=== PATIENT | female | born 1940 | race Caucasian/White ===

== ENCOUNTER 2017-08-13 14:17 | Emergency (ER) | payer OTHER ==
[~2017-08-13] VITALS: Ht 162.6 cm; Wt 63.5 kg
[~2017-08-13 14:17] MED LIST: ALENDRONATE SOD70 M2 PO; AMLODIPINE BESYL5 M1 PO; AUGMENTIN 875-1 EACH PO; HYDROCHLOROTHIA25 M1 PO; LATANOPROST2.5 ML OU; LEVOTHYROXINE50 MCG PO; PRAVASTATIN SOD20 M2 PO
--- NOTE | 2017-08-13 14:26 | ED GI/GU/ABDOMINAL COMPLAINT ---
History of Present Illness General Chief Complaint: General Adult Stated Complaint: SIB BY PCP FOR Source: patient, family Exam Limitations: no limitations Vital Signs & Intake/Output Vital Signs & Intake/Output Vital Signs Date Time Temp Pulse Resp B/P B/P Pulse O2 O2 Flow FiO2 Mean Ox Delivery Rate 08/13 1755 97.8 100 16 132/81 98 Room Air 08/13 1447 98 Room Air 08/13 1423 98.1 101 20 148/92 96 Room Air Allergies Coded Allergies: No Known Allergies (05/13/17) Triage Note: SEEN HERE LAST NIGHT FOR NAUSEA. TODAY CONTINUES WITH NAUSEA, CHILLS, POOR APPETITE AND LOW GRADE FEVER. PT DENIES ABDOMINAL PAIN. SIB DR LITTLEJOHN FOR CT SCAN Triage Nurses Notes Reviewed? yes ? N Is pt currently ? No Onset: Gradual Duration: day(s): Timing: recent history Quality/Severity: moderate HPI: 76yo female presents to ED sent in by PCP for CT scan. The patient was seen and evaluated here yesterday complaining of nausea and low appetite. Patient reports nausea for the past few days and poor appetite for several weeks. Patient states that she has been having less frequent bowel movements and small bowel movements which she attributes to eating less. Patient's primary care doctor called her this morning to tell her to come back to the emergency department for CT scan. Patient has no abdominal pain, diarrhea, vomiting, fevers, chills, dyspnea, cough. (Alexandra BORRERO,[place] Chapin) Reconcile Medications Alendronate Sodium 70 MG TABLET 1 TAB PO QMON OSTEOPOROSIS (Reported) in the morning, at least 30 minutes before the first food, beverage, or medication of the day Alprazolam 0.25 MG TABLET 1 TAB PO BIDP PRN ANXIETY (Reported) Amlodipine Besylate 5 MG TABLET 1.5 TAB PO DAILY BP (Reported) Docusate Sodium (Colace) 100 MG CAPSULE 1 CAP PO DAILY CONSTIPATION (Reported ) Escitalopram Oxalate 5 MG TABLET 1 TAB PO DAILY MENTAL HEALTH (Reported) Hydrochlorothiazide 25 MG TABLET 1 TAB PO DAILY DIURETIC (Reported) Latanoprost 0.005 % DROPS 1 GTT OU QPM BOTH EYES (Reported) Levothyroxine Sodium 50 MCG TABLET 1 TAB PO DAILY THYROID (Reported) Ondansetron (Zofran Odt) 4 MG TAB.RAPDIS 1 TAB SL TID nausea Pravastatin Sodium 20 MG TABLET 1 TAB PO DAILY CHOLESTEROL (Reported) Promethazine HCl 25 MG TABLET 1 TAB PO Q6P PRN nausea Tylenol With Codeine (Tylenol With Codeine #3 Tablet) 300 MG-30 MG TABLET 1-2 TAB PO BIDP PRN pain (Carlito JOSEPH,Kendall Pompa) Past History Travel History Traveled to [place] past 21 day No Medical History Any Pertinent Medical History? see below for history Neurological: RT ARM RESTING TREMOR Cardiovascular: hypertension, hyperlipidemia Endocrine: hypothyroidism History of MRSA: No History of VRE: No History of CDIFF: No Surgical History Surgical History: none Psychosocial History What is your primary language Vietnamese Tobacco Use: Quit >30 days ago ETOH Use: denies use Illicit Drug Use: denies illicit drug use Family History Hx Contributory? No ([place] Lopez) Review of Systems Review of Systems Constitutional: Reports: see HPI. EENTM: Reports: no symptoms. Respiratory: Reports: no symptoms. Cardiovascular: Reports: no symptoms. GI: Reports: see HPI. Genitourinary: Reports: no symptoms. Musculoskeletal: Reports: no symptoms. Skin: Reports: no symptoms. Neurological/Psychological: Reports: no symptoms. Hematologic/Endocrine: Reports: no symptoms. Immunologic/Allergic: Reports: no symptoms. All Other Systems: Reviewed and Negative ([place] Lopez) Physical Exam Physical Exam General Appearance: well developed/nourished, no apparent distress, alert, awake Head: atraumatic, normal appearance Eyes: Bilateral: normal appearance. Ears, Nose, Throat, Mouth: hearing grossly normal Neck: normal inspection, supple, full range of motion Respiratory: normal breath sounds, no respiratory distress, lungs clear Cardiovascular: regular rate/rhythm Gastrointestinal: normal bowel sounds, soft, non-tender, no organomegaly Back: normal inspection, normal range of motion Extremities: normal range of motion Neurologic/Psych: awake, alert, oriented x 3, resting upper extremity tremor bilaterally Skin: intact, normal color, warm/dry Core Measures ACS in differential dx? No Sepsis Present: No Sepsis Focused Exam Completed? No ([place]ia Lopez) Progress Differential Diagnosis: appendicitis, bowel obstruction, colon cancer, cholecystitis, diverticulitis, gastritis, hepatitis, hernia, inflamm bowel dis, SBO Plan of Care: Orders Procedure Date/time Status Enema 08/13 1641 Active Add-on Test (ER Only) 08/13 1509 Active URINE DRUG SCREEN FOR ER ONLY 08/13 1509 Complete URINALYSIS 08/13 1509 Complete ETHANOL 08/13 1458 Complete COMPREHENSIVE METABOLIC PANEL 08/13 1458 Complete CBC WITHOUT DIFFERENTIAL 08/13 1458 Complete ED CRISIS PSYCH CONSULT 08/13 1458 Active Laboratory Tests 08/13/17 1650: Urine Opiates Screen < 100.00, Methadone Screen < 40, Barbiturate Screen < 60, Ur Phencyclidine Scrn < 6.00, Amphetamines Screen < 100, U Benzodiazepines Scrn < 85, Urine Cocaine Screen < 50, Urine Cannabis Screen < 5.00, Urinalysis LIGHT H, Urine Color YEL, Urine Clarity CLEAR, Urine pH 7.5, Ur Specific [place] 1.010 , Urine Protein NEG, Urine Ketones NEG, Urine Nitrite NEG, Urine Bilirubin NEG, Urine Urobilinogen 0.2, Ur Leukocyte Esterase MOD H, Ur Microscopic SEDIMENT EXAMINED, Urine RBC RARE, Urine WBC 3-5 H, Ur Epithelial Cells MOD H, Urine Bacteria MOD H, Urine Mucus FEW, Urine Hemoglobin NEG, Urine Glucose NEG 08/13/17 1535: Anion Gap 14, Estimated GFR > 60, BUN/Creatinine Ratio 10.0, Glucose 88, Calcium 10.2, Total Bilirubin 0.6, AST 13 L, ALT 23, Alkaline Phosphatase 81, Total Protein 7.3, Albumin 4.4, Globulin 2.9, Albumin/Globulin Ratio 1.5, CBC w Diff NO MAN DIFF REQ, RBC 5.04, MCV 90.3, MCH 29.9, MCHC 33.2, RDW 15.3 H, MPV 9.3, Gran % 71.4, Lymphocytes % 21.1, Monocytes % 6.6, Eosinophils % 0.6, Basophils % 0.3, Absolute Granulocytes 5.7, Absolute Lymphocytes 1.7, Absolute Monocytes 0.5 , Absolute Eosinophils 0, Absolute Basophils 0, Serum Alcohol < 10.0 Patient's family is concerned about her recent isolation following her 's approximately 4 months ago. Family state the patient is depressed with low motivation to perform her usual routines, no appetite. Given patient's return in 24 hours patient offered crisis evaluation and agrees to speak with social science manager. CT scan shows constipation and fecal impaction. Patient offered digital disimpaction however prefers to try an enema first. Following soapsuds enema patient had a large bowel movement. Patient started on Colace to aid in bowel movements in the future. She was encouraged to increase her fluids as dehydration can lead to constipation. Patient given outpatient resources for psychiatric evaluation regarding her depression. Patient started on low-dose oral anxiolytic given her family's concern about anxiety at home relating to her 's recent . Patient has a scheduled appointment with her primary care doctor in the next few weeks. She will return with any worsening symptoms or concerns. The patient is in no acute distress, nontoxic appearing, no abdominal tenderness, vital signs are stable. The patient agrees with the plan of care. The patient was discussed with Dr. Esteban who agrees with this plan. Diagnostic Imaging: Viewed by Me: CT Scan. Discussed w/RAD: CT Scan. Radiology Impression: PATIENT: TEDDY VALDEZ PRESENT AGE: 76 PATIENT ACCOUNT NO: [id number] : 40 LOCATION: [facility] ORDERING PHYSICIAN: [place] BORRERO SERVICE DATE: 08/13/17 EXAM TYPE: CAT - CT ABD & PELVIS W IV CONTRAST EXAMINATION: CT ABDOMEN AND PELVIS WITH CONTRAST CLINICAL INFORMATION: Abdominal pain, nausea COMPARISON: [address] scan TECHNIQUE: Multidetector volumetric imaging was performed of the abdomen and pelvis following IV administration of 94 mL of Optiray 320 intravenous contrast. Sagittal and coronal reformatted images were obtained on the technologist's workstation. DLP: 289.12 mGy-cm FINDINGS: LUNG BASES: Linear densities at the left lung base can represent atelectasis. LIVER, GALLBLADDER, AND BILIARY TREE: The liver is normal in size, shape, and attenuation. No focal hepatic lesion or biliary ductal dilatation is present. The gallbladder is normally distended and contains multiple small radiopaque gallstones. There is no gallbladder wall thickening, or obvious pericholecystic inflammatory changes. PANCREAS: Unremarkable. SPLEEN: Unremarkable. ADRENAL GLANDS: Unremarkable. KIDNEYS AND URETERS: The kidneys are normal in size, shape, and attenuation. No hydronephrosis, hydroureter, or calculi seen. No perinephric stranding. There is a 5 mm hypodensity in the upper pole cortex of the left kidney, too small to fully characterize and can represent a renal cortical cyst. BLADDER: Unremarkable. GASTROINTESTINAL TRACT: The small and large bowel are unremarkable. The appendix is unremarkable. Moderate amount of stool is in the rectum, causing mild distention of the rectum, representing fecal impaction. ABDOMINAL WALL: No significant hernia is appreciated. LYMPH NODES: Normal. VASCULAR: Unremarkable. PELVIC VISCERA: The uterus is unremarkable. There is a 1.8 cm cyst in the left ovary. No pelvic free fluid. OSSEOUS STRUCTURES: Degenerative disc disease at L3-L4, L4-L5 and L5-S1. Coarsening of bony trabeculae of L1 and T12, could represent hemangioma. IMPRESSION: Gallstones without CT evidence of acute cholecystitis. Clinical correlation is suggested. Findings suggestive of rectal fecal impaction. DICTATED BY: Frances Almonte MD DATE/TIME DICTATED:08/13/171553 VIROLOGIST:JACKELINE DATE/TIME TRANSCRIBED:08/13/171553 CONFIDENTIAL, DO NOT COPY WITHOUT APPROPRIATE AUTHORIZATION. <Electronically signed in Other Vendor System> SIGNED BY: Frances Almonte MD 08/13/17 1610 Initial ED EKG: none (Alexandra BORRERO,[place] Chapin) Departure Departure Disposition: HOME OR SELF CARE Condition: Stable Clinical Impression Primary Impression: Constipation Qualifiers: Constipation type: unspecified constipation type Qualified Code: K59.00 - Constipation, unspecified Secondary Impressions: Fecal impaction Referrals: Arianna Schwab MD (PCP/Family) Additional Instructions: Follow-up with her primary care doctor as scheduled. You were also given a referral for psychiatry that he may follow-up with if he chooses to. You were also given a low-dose prescription pill to take for anxiety. Use this medication as needed. Also increase her fluids, drink plenty of fluids per day. Begin taking Colace stool softener to aid in your bowel movements. Return to the emergency Department with any worsening symptoms or concerns. Please note that there might be incidental findings in your evaluation that are unrelated to the current emergency department visit. Please notify your primary care doctor about this emergency department visit in order to obtain and review all of the testing performed so that these incidental findings can be monitored as needed. If you had an x-ray performed, please understand that some fractures may not be seen on the initial set of x-rays. If your symptoms persist you might need a repeat set of x-rays to check for such a fracture. If you had a laceration evaluated, please understand that foreign bodies such as glass or wood may not be visible to the naked eye or on plain x-rays. If the wound becomes red, swollen, increasingly more painful or if there is any drainage from the wound, please have it reevaluated by a physician for the possibility of a retained foreign body. If you're unable to follow up as outlined in the discharge instructions please return to the emergency department. Thank you for choosing the [facility] Emergency Department for your care. It was a pleasure to serve you today. Departure Forms: Customer Survey General Discharge Information (Alexandra BORRERO,[place] Chapin) PA/CUSTOMER RELATIONS ADVISOR Co-Sign Statement Statement: ED Attending supervision documentation- [X] I saw and evaluated the patient. I have also reviewed all the pertinent lab results and diagnostic results. I agree with the findings and the plan of care as documented in the PA's/CUSTOMER RELATIONS ADVISOR's documentation. [X] I have reviewed the ED Record and agree with the PA's/CUSTOMER RELATIONS ADVISOR's documentation. [] Additions or exceptions (if any) to the PAs/CUSTOMER RELATIONS ADVISOR's note and plan are summarized below: [] (Carlito JOSEPH,Kendall Pompa)
[2017-08-13 15:49] LABS: ABSOLUTE BASOPHIL COUNT 0 /CUMM (0.0-0.2); ABSOLUTE EOSINOPHIL COUNT 0 /CUMM (0.0-0.7); ABSOLUTE GRANULOCYTE CT 5.7 /CUMM (1.4-6.5); ABSOLUTE LYMPH COUNT 1.7 /CUMM (1.2-3.4); ABSOLUTE MONOCYTE COUNT 0.5 /CUMM (0.10-0.60); BASOPHIL % 0.3 % (0.0-2.0); EOSINOPHIL % 0.6 % (0-5); GRANULOCYTE % 71.4 % (42.2-75.2); HEMATOCRIT 45.5 % (37-47); MEAN CORPUSCULAR HGB 29.9 PG (27.0-31.0); MEAN CORPUSCULAR HGB CONC 33.2 G/DL (33.0-37.0); MEAN CORPUSCULAR VOLUME 90.3 FL (81.0-99.0); MEAN PLATELET VOLUME 9.3 FL (7.4-10.4); PLATELET COUNT 256 /CUMM (130-400); RBC DISTRIBUTION WIDTH 15.3 % (11.5-14.5); RED BLOOD CELL CT 5.04 /CUMM (4.20-5.40)
--- NOTE | 2017-08-13 16:10 | CT SCAN REPORT ---
EXAMINATION: CT ABDOMEN AND PELVIS WITH CONTRAST CLINICAL INFORMATION: Abdominal pain, nausea COMPARISON: 05/14/[address] scan TECHNIQUE: Multidetector volumetric imaging was performed of the abdomen and pelvis following IV administration of 94 mL of Optiray 320 intravenous contrast. Sagittal and coronal reformatted images were obtained on the technologist's workstation. DLP: 289.12 mGy-cm FINDINGS: LUNG BASES: Linear densities at the left lung base can represent atelectasis. LIVER, GALLBLADDER, AND BILIARY TREE: The liver is normal in size, shape, and attenuation. No focal hepatic lesion or biliary ductal dilatation is present. The gallbladder is normally distended and contains multiple small radiopaque gallstones. There is no gallbladder wall thickening, or obvious pericholecystic inflammatory changes. PANCREAS: Unremarkable. SPLEEN: Unremarkable. ADRENAL GLANDS: Unremarkable. KIDNEYS AND URETERS: The kidneys are normal in size, shape, and attenuation. No hydronephrosis, hydroureter, or calculi seen. No perinephric stranding. There is a 5 mm hypodensity in the upper pole cortex of the left kidney, too small to fully characterize and can represent a renal cortical cyst. BLADDER: Unremarkable. GASTROINTESTINAL TRACT: The small and large bowel are unremarkable. The appendix is unremarkable. Moderate amount of stool is in the rectum, causing mild distention of the rectum, representing fecal impaction. ABDOMINAL WALL: No significant hernia is appreciated. LYMPH NODES: Normal. VASCULAR: Unremarkable. PELVIC VISCERA: The uterus is unremarkable. There is a 1.8 cm cyst in the left ovary. No pelvic free fluid. OSSEOUS STRUCTURES: Degenerative disc disease at L3-L4, L4-L5 and L5-S1. Coarsening of bony trabeculae of L1 and T12, could represent hemangioma. IMPRESSION: Gallstones without CT evidence of acute cholecystitis. Clinical correlation is suggested. Findings suggestive of rectal fecal impaction.
[2017-08-13] MEDS ORDERED: XANAX0.25 M1 PO (19:13)
--- NOTE | 2017-08-13 19:19 | ED PSYCH CRISIS CONSULTATION ---
Crisis Consult Basic Assessment Date of Consult: 08/13/17 Responsible Person/Accompanied By: accompanied by her son Marques Andrea Insurance Authorization: Insurance #1: Insurance name: [facility] Phone number: Policy number: [id number] Group number: [id number] Authorization number: ED Provider: Patient's ED Provider: [place] Lopez Primary Care Physician: Patient's PCP: Arianna Schwab MD PCP's Current Psychiatrist: none Chief Complaint: General Adult Patient's Quote: "I feel this way because my ." Present Illness: Pt is a 76 yo female who was brought to the ED by her son Marques Andrea due to chills, low grade fever, and decrease in appetite. crisis was asked to meet with pt and her son due to patient identifying that she hsa been feeling depressed since her of 55 years in Apr 2017 of stage 4 cancer. 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 She identifies that she has isela more isolative (not leaving the home much), she has had a decrease in appetite, poor sleep, and anxiety such as shaking, chest fluttering, and feeling "gittery ". She denies any SI/HI/SH or psychotic sx or any hx of such. She denies any prior mental health hx. Marques informed that he and/or his sister are around daily so that she is never alone. He requested a list of referrals for out patient therapy. A list was provided. Case reviewed with Dr. crarillo of Psychiatry and she approved discharge. Patient's Address: [address] [place] [address] Other Who Do You Live With? Family Family/Informants Interviewed: son Allergies - Coded Allergies: No Known Allergies (05/13/17) Current Medications - Scheduled Medications Alendronate Sodium 70 MG TABLET 1 TAB PO QMON OSTEOPOROSIS #12 (Reported) Entered as Reported by Tess Marie on 05/13/17 183 Amlodipine Besylate 5 MG TABLET 1.5 TAB PO DAILY BP #135 (Reported) Entered as Reported by Tess Marie on 05/13/17 1834 Amoxicillin/Potassium Clav (Augmentin 875-125 Tablet) 875 MG-125 MG TABLET 1 TAB PO BID abdominal infection #14 TAB Prescribed by Ben Sharpe on 05/16/17 Amoxicillin/Potassium Clav (Augmentin 875-125 Tablet) 875 MG-125 MG TABLET 1 TAB PO BID abdominal infection #14 TAB Prescribed by Colleen Toure on 05/15/17 Hydrochlorothiazide 25 MG TABLET 1 TAB PO DAILY DIURETIC #90 (Reported) Entered as Reported by Tess Marie on 05/13/17 1834 Latanoprost 0.005 % DROPS 1 GTT OU QPM BOTH EYES #10 (Reported) Entered as Reported by Tess Marie on 05/13/17 1835 Levothyroxine Sodium 50 MCG TABLET 1 TAB PO DAILY THYROID #90 (Reported) Entered as Reported by Tess Marie on 05/13/17 1833 Pravastatin Sodium 20 MG TABLET 1 TAB PO DAILY CHOLESTEROL #90 (Reported) Entered as Reported by Tess Marie on 05/13/17 1834 Scheduled PRN Medications Alprazolam (Xanax) 0.25 MG TABLET 1 TAB PO BIDP PRN ANXIETY #10 TAB Prescribed by [place]ia Lopez on 08/13/17 Laboratory Results: Laboratory Tests 08/13/17 1650: Urine Opiates Screen < 100.00, Methadone Screen < 40, Barbiturate Screen < 60, Ur Phencyclidine Scrn < 6.00, Amphetamines Screen < 100, U Benzodiazepines Scrn < 85, Urine Cocaine Screen < 50, Urine Cannabis Screen < 5.00, Urinalysis LIGHT H, Urine Color YEL, Urine Clarity CLEAR, Urine pH 7.5, Ur Specific [place] 1.010 , Urine Protein NEG, Urine Ketones NEG, Urine Nitrite NEG, Urine Bilirubin NEG, Urine Urobilinogen 0.2, Ur Leukocyte Esterase MOD H, Ur Microscopic SEDIMENT EXAMINED, Urine RBC RARE, Urine WBC 3-5 H, Ur Epithelial Cells MOD H, Urine Bacteria MOD H, Urine Mucus FEW, Urine Hemoglobin NEG, Urine Glucose NEG 08/13/17 1535: Anion Gap 14, Estimated GFR > 60, BUN/Creatinine Ratio 10.0, Glucose 88, Calcium 10.2, Total Bilirubin 0.6, AST 13 L, ALT 23, Alkaline Phosphatase 81, Total Protein 7.3, Albumin 4.4, Globulin 2.9, Albumin/Globulin Ratio 1.5, CBC w Diff NO MAN DIFF REQ, RBC 5.04, MCV 90.3, MCH 29.9, MCHC 33.2, RDW 15.3 H, MPV 9.3, Gran % 71.4, Lymphocytes % 21.1, Monocytes % 6.6, Eosinophils % 0.6, Basophils % 0.3, Absolute Granulocytes 5.7, Absolute Lymphocytes 1.7, Absolute Monocytes 0.5 , Absolute Eosinophils 0, Absolute Basophils 0, Serum Alcohol < 10.0 Past History Past Medical History Neurological: RT ARM RESTING TREMOR Cardiovascular: hypertension, hyperlipidemia Endocrine: hypothyroidism Past Surgical History Surgical History: 1 Psychosocial History Strengths/Capabilities: Enjoys cooking and cleaning, strong belief in God, supportive family Physical Limitations (Interventions): none reported Psychiatric Treatment History Psych Treatment Psychiatric Treatment No Inpatient Treatment No Diagnosis by History: denies Substance Use/Abuse History Drug Use/Abuse Substances Used/Abused No Substance Abuse Treatment Substance Abuse Treatment Past Substance Abuse [place] No Inpatient Treatment No Current Mental Status Mental Status Orientation: Person, Place, Situation Affect: WNL Speech: WNL Neuro-vegetative: Appetite Decreased, Sleep Disturbance Appearance Appearance- Dress/Hygiene: well groomed, good eye contact Behaviors Thought Process: WNL Thought Content: WNL Memory: WNL Insight: WNL SI/HI Risk Assessment Past Suicidal Ideation/Attempts No Current Suicidal Ideation/Att No Past Homicidal Ideation/Att: No Current Homicidal Ideation/Attempts No Degree of Intent: None Risk Factors: age (under 24/over 65) Lethality Ratin (mild) PTSD Checklist PTSD Done? patient declined ED Management Sitter: No Restraints: No DSM5/PS Stressors/Medical Prob Diagnosis' (DSM 5, Stressors, Medical): Z63.4 Bereavement Current GAF: 45 Departure Disposition Psych Medical Clearance Date: 08/13/17 Medically Cleared at: 1844 Time Started: 1844 Time Ended: 1944 Psychiatrist Consulted: Danuta Date Disposition Established: 08/13/17 Time Disposition Established: 1944 Plan for Disposition - Modality: Outpatient Facility: Patient to Arrange Rationale for Disposition: In need of bereavement support Referrals Zaheer JOSEPH,Arianna (PCP/Family)
[2017-08-13 19:22] VITALS: BP 188/85
== END 2017-08-13 19:21 ==
LOC: ERH 14:17
PROVIDERS: Physician Assistant
DX: K59.00 Constipation, unspecified (principal); K56.41 Fecal impaction; I10 Essential (primary) hypertension; E03.9 Hypothyroidism, unspecified
CPT/HCPCS: 74177; 80307; 81001; G0463; G0480

== ENCOUNTER 2017-08-18 06:12 | Emergency (ER) | payer OTHER ==
[~2017-08-18] VITALS: Ht 162.6 cm; Wt 61.7 kg
[~2017-08-18 06:12] MED LIST changes: +XANAX0.25 M1 PO
--- NOTE | 2017-08-18 08:51 | ED GI/GU/ABDOMINAL COMPLAINT ---
History of Present Illness General Chief Complaint: General Adult Stated Complaint: "NAUSEA,CAN'T EAT,CHILLS" Source: patient, family Exam Limitations: no limitations Vital Signs & Intake/Output Vital Signs & Intake/Output Vital Signs Date Time Temp Pulse Resp B/P B/P Pulse O2 O2 Flow FiO2 Mean Ox Delivery Rate 08/18 1124 97.3 95 20 158/80 97 Room Air 08/18 0705 97.1 85 20 148/84 97 Room Air Allergies Coded Allergies: No Known Allergies (05/13/17) Triage Note: PT C/O INTERMITTANT ABDOMINAL PAIN WITH NAUSEA X 1 WEEK. PT SEEN HERE FOR SAME PROBLEM X 2. DID F/U WITH DR TERESA AND RX'D WITH LEXAPRO AND COLACE BUT STILL NO BETTER. STATES UNABLE TO EAT WITHOUT FEELING NAUSEOUS. DENIES VOMITING Triage Nurses Notes Reviewed? yes ? n Is pt currently ? No Onset: Abrupt Duration: week(s): (few), constant, continues in ED Timing: recent history Location: epigastric Radiation: no radiation No Modifying Factors: none HPI: 76-year-old female comes into the emergency room for further evaluation of intermittent abdominal pain and persistent nausea has been going on for the past 8 weeks. Pain is located in the epigastric region. No correlation with food. She has more complaints of persistent nausea and decreased appetite. Denies any chest pain shortness of breath. Denies any fever. Denies any vomiting. Patient was seen here on 2 separate occasions. Comes in for further evaluation. (Thaddeus BORRERO,Harvinder) Reconcile Medications Alendronate Sodium 70 MG TABLET 1 TAB PO QMON OSTEOPOROSIS (Reported) in the morning, at least 30 minutes before the first food, beverage, or medication of the day Alprazolam 0.25 MG TABLET 1 TAB PO BIDP PRN ANXIETY (Reported) Amlodipine Besylate 5 MG TABLET 1.5 TAB PO DAILY BP (Reported) Docusate Sodium (Colace) 100 MG CAPSULE 1 CAP PO DAILY CONSTIPATION (Reported ) Escitalopram Oxalate 5 MG TABLET 1 TAB PO DAILY MENTAL HEALTH (Reported) Hydrochlorothiazide 25 MG TABLET 1 TAB PO DAILY DIURETIC (Reported) Latanoprost 0.005 % DROPS 1 GTT OU QPM BOTH EYES (Reported) Levothyroxine Sodium 50 MCG TABLET 1 TAB PO DAILY THYROID (Reported) Ondansetron (Zofran Odt) 4 MG TAB.RAPDIS 1 TAB SL TID nausea Pravastatin Sodium 20 MG TABLET 1 TAB PO DAILY CHOLESTEROL (Reported) Promethazine HCl 25 MG TABLET 1 TAB PO Q6P PRN nausea Tylenol With Codeine (Tylenol With Codeine #3 Tablet) 300 MG-30 MG TABLET 1-2 TAB PO BIDP PRN pain (Bernadette JOSEPH,Alvin Gongora) Past History Travel History Traveled to [place] past 21 day No Medical History Any Pertinent Medical History? see below for history Neurological: RT ARM RESTING TREMOR Cardiovascular: hypertension, hyperlipidemia Endocrine: hypothyroidism History of MRSA: No History of VRE: No History of CDIFF: No Surgical History Surgical History: none Psychosocial History Who do you live with Family What is your primary language Maori Tobacco Use: Never used ETOH Use: denies use Illicit Drug Use: denies illicit drug use Family History Hx Contributory? No (Harvinder Tamayo) Review of Systems Review of Systems Constitutional: Reports: see HPI. EENTM: Reports: no symptoms. Respiratory: Reports: no symptoms. Cardiovascular: Reports: no symptoms. GI: Reports: see HPI. Genitourinary: Reports: no symptoms. Musculoskeletal: Reports: no symptoms. Skin: Reports: no symptoms. Neurological/Psychological: Reports: no symptoms. Hematologic/Endocrine: Reports: no symptoms. Immunologic/Allergic: Reports: no symptoms. All Other Systems: Reviewed and Negative (Harvinder Tamayo) Physical Exam Physical Exam General Appearance: well developed/nourished, alert, awake Head: atraumatic, normal appearance Eyes: Bilateral: normal appearance, EOMI. Neck: normal inspection Respiratory: normal breath sounds, no respiratory distress Cardiovascular: regular rate/rhythm Gastrointestinal: soft, non-tender Back: normal inspection Extremities: normal range of motion Neurologic/Psych: awake, alert, oriented x 3, normal gait, normal mood/affect Skin: intact, normal color Core Measures ACS in differential dx? No Sepsis Present: No Sepsis Focused Exam Completed? No (Harvinder Tamayo) Progress Differential Diagnosis: AMI, biliary colic, cholecystitis, gastritis, pancreatitis, peptic ulcer, PUD/GERD, SBO Diagnostic Imaging: Viewed by Me: Ultrasound. Discussed w/RAD: Ultrasound. Radiology Impression: PATIENT: TEDDY VALDEZ PRESENT AGE: 76 PATIENT ACCOUNT NO: [id number] : 40 LOCATION: [facility] ORDERING PHYSICIAN: Harvinder BORRERO SERVICE DATE: 08/18/17 EXAM TYPE : US - US-LIMITED ABDOMEN EXAMINATION: US ABDOMEN LIMITED CLINICAL INFORMATION: Epigastric pain. Gallstones seen on CT scan. COMPARISON: CT scan abdomen and pelvis 08/13/2017. TECHNIQUE: Real-time imaging of the right upper quadrant abdominal viscera. FINDINGS: PANCREAS: The visualized pancreatic head and body are normal in appearance. The remainder of the pancreas is obscured from visualization by the overlying bowel gas. LIVER: The liver demonstrates normal size, contour and echogenicity. No focal lesion or intrahepatic biliary duct dilatation. GALLBLADDER: The gallbladder is physiologically distended. There are multiple echogenic calculi within the gallbladder lumen, the largest measuring approximately 4 mm. There is no gallbladder wall thickening, wall fluid or pericholecystic fluid. The patient was not tender in the right upper quadrant. COMMON BILE DUCT: Normal in caliber measuring 0.4 cm in diameter. RIGHT KIDNEY: There is no hydronephrosis. No renal calculi or focal parenchymal lesions. The kidney measures 10.7 cm in maximum dimension. FREE FLUID: None. IMPRESSION: 1. There are multiple echogenic gallstones within the gallbladder lumen, without evidence of acute cholecystitis. DICTATED BY: Jbo Jones MD DATE/TIME DICTATED :08/18/171057 FO[employer] DRILL OPERATOR:JACKELINE DATE/TIME TRANSCRIBED:08/18/171057 CONFIDENTIAL, DO NOT COPY WITHOUT APPROPRIATE AUTHORIZATION. < Electronically signed in Other Vendor System> SIGNED BY: Job Jones MD 1105 Initial ED EKG: NSR, rate (83) (Harvinder Tamayo) Plan of Care: Orders Procedure Date/time Status TROPONIN LEVEL 08/18 0850 Complete LIPASE 08/18 0850 Complete LACTIC ACID 08/18 0850 Complete COMPREHENSIVE METABOLIC PANEL 08/18 0850 Complete CBC WITHOUT DIFFERENTIAL 08/18 849 Complete EKG 08/18 0850 Active Laboratory Tests 08/18/17 0925: Anion Gap 11, Estimated GFR > 60, BUN/Creatinine Ratio 8.3, Glucose 111 H, Lactic Acid 0.9, Calcium 9.9, Total Bilirubin 0.5, AST 13 L, ALT 18, Alkaline Phosphatase 73, Troponin I < 0.01, Total Protein 6.8, Albumin 4.2, Globulin 2.6, Albumin/Globulin Ratio 1.6, Lipase 163, CBC w Diff NO MAN DIFF REQ, RBC 4.81, MCV 89.7, MCH 30.2, MCHC 33.7, RDW 15.1 H, MPV 9.3, Gran % 74.4, Lymphocytes % 19.1 L, Monocytes % 5.6, Eosinophils % 0.4, Basophils % 0.5, Absolute Granulocytes 4.9, Absolute Lymphocytes 1.3, Absolute Monocytes 0.4, Absolute Eosinophils 0, Absolute Basophils 0 08/18/17 0850: Urine Color Cancelled, Urine Clarity Cancelled, Urine pH Cancelled, Ur Specific [place] Cancelled, Urine Protein Cancelled, Urine Ketones Cancelled, Urine Nitrite Cancelled, Urine Bilirubin Cancelled, Urine Urobilinogen Cancelled, Ur Leukocyte Esterase Cancelled, Ur Microscopic Cancelled, Urine Hemoglobin Cancelled, Urine Glucose Cancelled (Bernadette JOSEPH,Alvin Gongora) Departure Departure Disposition: HOME OR SELF CARE Condition: Stable Clinical Impression Primary Impression: Abdominal pain Referrals: Arianna Teresa MD (PCP/Family) Neto Lopez MD Additional Instructions: Take Tylenol with codeine, promethazine, and Zofran ODT as prescribed. Rest. Drink plenty of fluids. Follow up with GI doctor provided. Use Zofran first as needed. Please go over all results of today's visit with your primary care doctor. Contact your primary care doctor to let them know you were here in the emergency room. There may be nonspecific findings which may not be related to your visit today here in the emergency room but may require further evaluation and chronic monitoring by your primary care doctor. If you had a laceration today the chance of foreign body always remains. You should follow-up with your primary care doctor for recheck in 3-5 days for a wound check. If you had an x-ray done there is a chance that a fracture could have been missed on initial read and you should follow-up with your primary care doctor for repeat x-rays if symptoms persist. If your blood pressure was elevated here in the emergency room please have rechecked by [facility] primary care doctor within the next 48. If you were prescribed a narcotic here in the emergency room or any type of controlled substances you're not allowed to drive while taking this medication or operate any type of heavy machinery. Narcotics can make you feel lightheaded dizziness nausea and can cause constipation. You may need to molded goods spot picker a stool softener. Thank you for choosing [facility] emergency room. Please return to the emergency room immediately if you have any other concerns worsening of symptoms. Departure Forms: Customer Survey General Discharge Information Prescriptions: Current Visit Scripts Ondansetron (Zofran Odt) 1 TAB SL TID #20 TAB Promethazine HCl 1 TAB PO Q6P PRN nausea #30 TAB Tylenol With Codeine (Tylenol With Codeine #3 Tablet) 1-2 TAB PO BIDP PRN pain #10 TAB Comments 08/18/2017 11:49:29 AM Patient clinically looks well. In no apparent distress. Nontoxic appearing. Follow-up with outpatient gastroenterology. Return if any concerns worsening symptoms. Take medications as prescribed. Patient was seen and evaluated with Dr. Fleming. Patient does not appear to be in any type of distress. She understands and agrees with plan of care. (Thaddeus BORRERO,Harvinder) PA/EDUCATION PROGRAM COORDINATOR Co-Sign Statement Statement: ED Attending supervision documentation- [x] I saw and evaluated the patient. I have also reviewed all the pertinent lab results and diagnostic results. I agree with the findings and the plan of care as documented in the PA's/EDUCATION PROGRAM COORDINATOR's documentation. Patient presents for evaluation of nausea over the past 2 days. Patient states that she has had intermittent episodes of nausea and abdominal pain since April of last year but her evaluations haven't revealed any specific etiology. Physical examination reveals a nondistended abdomen with normal bowel sounds. [] I have reviewed the ED Record and agree with the PA's/EDUCATION PROGRAM COORDINATOR's documentation. [] Additions or exceptions (if any) to the PAs/EDUCATION PROGRAM COORDINATOR's note and plan are summarized below: [] (Bernadette JOSEPH,Alvin Gongora)
[2017-08-18] MEDS ORDERED: COLACE100 M1 PO (09:05)
[2017-08-18] MEDS ORDERED: ESCITALOPRAM OXA5 MG PO (09:05)
[2017-08-18] MEDS ORDERED: ALPRAZOLAM0.25 M1 PO (09:06)
[2017-08-18 09:52] LABS: ABSOLUTE BASOPHIL COUNT 0 /CUMM (0.0-0.2); ABSOLUTE EOSINOPHIL COUNT 0 /CUMM (0.0-0.7); ABSOLUTE GRANULOCYTE CT 4.9 /CUMM (1.4-6.5); ABSOLUTE LYMPH COUNT 1.3 /CUMM (1.2-3.4); ABSOLUTE MONOCYTE COUNT 0.4 /CUMM (0.10-0.60); BASOPHIL % 0.5 % (0.0-2.0); EOSINOPHIL % 0.4 % (0-5); GRANULOCYTE % 74.4 % (42.2-75.2); HEMATOCRIT 43.1 % (37-47); MEAN CORPUSCULAR HGB 30.2 PG (27.0-31.0); MEAN CORPUSCULAR HGB CONC 33.7 G/DL (33.0-37.0); MEAN CORPUSCULAR VOLUME 89.7 FL (81.0-99.0); MEAN PLATELET VOLUME 9.3 FL (7.4-10.4); PLATELET COUNT 249 /CUMM (130-400); RBC DISTRIBUTION WIDTH 15.1 % (11.5-14.5); RED BLOOD CELL CT 4.81 /CUMM (4.20-5.40); WHITE BLOOD CELL COUNT 6.6 /CUMM (4.8-10.8)
--- NOTE | 2017-08-18 11:05 | ULTRASOUND REPORT ---
EXAMINATION: US ABDOMEN LIMITED CLINICAL INFORMATION: Epigastric pain. Gallstones seen on CT scan. COMPARISON: CT scan abdomen and pelvis 08/13/2017. TECHNIQUE: Real-time imaging of the right upper quadrant abdominal viscera. FINDINGS: PANCREAS: The visualized pancreatic head and body are normal in appearance. The remainder of the pancreas is obscured from visualization by the overlying bowel gas. LIVER: The liver demonstrates normal size, contour and echogenicity. No focal lesion or intrahepatic biliary duct dilatation. GALLBLADDER: The gallbladder is physiologically distended. There are multiple echogenic calculi within the gallbladder lumen, the largest measuring approximately 4 mm. There is no gallbladder wall thickening, wall fluid or pericholecystic fluid. The patient was not tender in the right upper quadrant. COMMON BILE DUCT: Normal in caliber measuring 0.4 cm in diameter. RIGHT KIDNEY: There is no hydronephrosis. No renal calculi or focal parenchymal lesions. The kidney measures 10.7 cm in maximum dimension. FREE FLUID: None. IMPRESSION: 1. There are multiple echogenic gallstones within the gallbladder lumen, without evidence of acute cholecystitis.
[2017-08-18 11:24] VITALS: BP 158/80
[2017-08-18] MEDS ORDERED: TYLENOL WITH C1 EACH PO (11:28)
[2017-08-18] MEDS ORDERED: ZOFRAN ODT4 M1 SL (11:28)
[2017-08-18] MEDS ORDERED: PROMETHAZINE HC25 M3 PO (11:28)
== END 2017-08-18 12:19 ==
LOC: ERH 06:12
PROVIDERS: Physician Assistant Medical
DX: R10.13 Epigastric pain (principal)
CPT/HCPCS: 93005; 93010; J3101

== ENCOUNTER 2017-09-05 16:22 | Inpatient (IN) | payer OTHER ==
[~2017-09-05] VITALS: Ht 162.6 cm; Wt 60.3 kg
[~2017-09-05 16:22] MED LIST changes: +ALPRAZOLAM0.25 M1 PO; +COLACE100 M1 PO; +ESCITALOPRAM OXA5 MG PO; +PROMETHAZINE HC25 M3 PO; +TYLENOL WITH C1 EACH PO; +ZOFRAN ODT4 M1 SL
--- NOTE | 2017-09-05 16:41 | ED GENERAL ADULT ---
History of Present Illness General Chief Complaint: Fall Stated Complaint: FALL +HEADSTRIKE YESTERDAY Source: patient, family, old records Exam Limitations: no limitations Vital Signs & Intake/Output Vital Signs & Intake/Output Vital Signs Date Time Temp Pulse Resp B/P B/P Pulse O2 O2 Flow FiO2 Mean Ox Delivery Rate 09/05 1824 98.6 86 18 157/83 97 Room Air Room Air 09/05 1626 98.2 100 18 148/82 98 Room Air Allergies Coded Allergies: No Known Allergies (05/13/17) Reconcile Medications Alendronate Sodium 70 MG TABLET 1 TAB PO QMON OSTEOPOROSIS (Reported) in the morning, at least 30 minutes before the first food, beverage, or medication of the day Alprazolam 0.25 MG TABLET 1 TAB PO BIDP PRN ANXIETY (Reported) Amlodipine Besylate 5 MG TABLET 1.5 TAB PO DAILY BP (Reported) Docusate Sodium (Colace) 100 MG CAPSULE 1 CAP PO DAILY CONSTIPATION (Reported ) Escitalopram Oxalate 5 MG TABLET 1 TAB PO DAILY MENTAL HEALTH (Reported) Hydrochlorothiazide 25 MG TABLET 1 TAB PO DAILY DIURETIC (Reported) Latanoprost 0.005 % DROPS 1 GTT OU QPM BOTH EYES (Reported) Levothyroxine Sodium 50 MCG TABLET 1 TAB PO DAILY THYROID (Reported) Ondansetron (Zofran Odt) 4 MG TAB.RAPDIS 1 TAB SL TID nausea Pravastatin Sodium 20 MG TABLET 1 TAB PO DAILY CHOLESTEROL (Reported) Promethazine HCl 25 MG TABLET 1 TAB PO Q6P PRN nausea Tylenol With Codeine (Tylenol With Codeine #3 Tablet) 300 MG-30 MG TABLET 1-2 TAB PO BIDP PRN pain Triage Note: PT TO TRIAGE WITH HER SON WHO STATES THAT PT IS HERE TO GET RECHECKED DUE TO SHE IS FEELING LIGHTHEADED, PT STATES THAT SHE FELL YESTERDAY IN THE BATHROOM AND HIT THE BACK OF HER HEAD AFTER A COLONOSCOPY. SON STATES " SHE FELL HERE IN YOUR GI SUITE DUE TO NO ONE WAS WITH HER". PT HAD NEGATIVE HEAD CT WHILE HERE AT HOSPITAL. Triage Nurses Notes Reviewed? yes HPI: 76 year old female presents to the ER for chief complaint of lightheadedness, feeling of weakness and "not right" since this morning. Past History Travel History Traveled to [place] past 21 day No Medical History Any Pertinent Medical History? see below for history Neurological: RT ARM RESTING TREMOR EENT: NONE Cardiovascular: hypertension, hyperlipidemia Respiratory: NONE Gastrointestinal: NONE Hepatic: NONE Renal: NONE Musculoskeletal: NONE Psychiatric: NONE Endocrine: hypothyroidism Blood Disorders: NONE Cancer(s): NONE History of MRSA: No History of VRE: No History of CDIFF: No Surgical History Surgical History: none Psychosocial History Who do you live with Family What is your primary language Frisian Tobacco Use: Never used ETOH Use: denies use Illicit Drug Use: denies illicit drug use Progress Differential Diagnoses I considered the following diagnoses in my evaluation of the patient: Plan of Care: Orders Procedure Date/time Status ED Holding Orders 09/06 1907 Active Admit to inpatient 09/06 1907 Active Vital Signs 09/06 1907 Active Code Status 09/06 1907 Active Telemetry/Welding Foreman 09/06 1819 Active MISTAKE 09/05 1640 Active TROPONIN LEVEL 09/05 164 Complete COMPREHENSIVE METABOLIC PANEL 09/05 1640 Complete CBC WITHOUT DIFFERENTIAL 09/05 1640 Complete EKG 09/05 1640 Active Laboratory Tests 09/05/17 1717: Anion Gap 10, Estimated GFR > 60, BUN/Creatinine Ratio 6.7 L, Glucose 129 H, Calcium 9.6, Total Bilirubin 0.9, AST 17, ALT 27, Alkaline Phosphatase 86, Troponin I < 0.01, Total Protein 6.8, Albumin 4.0, Globulin 2.8, Albumin/ Globulin Ratio 1.4, CBC w Diff NO MAN DIFF REQ, RBC 5.05, MCV 90.8, MCH 28.9, MCHC 31.8 L, RDW 14.8 H, MPV 9.0, Gran % 82.3 H, Lymphocytes % 10.9 L, Monocytes % 5.5, Eosinophils % 1.0, Basophils % 0.3, Absolute Granulocytes 7.5 H, Absolute Lymphocytes 1.0 L, Absolute Monocytes 0.5, Absolute Eosinophils 0.1 , Absolute Basophils 0 Diagnostic Imaging: Viewed by Me: CT Scan. Discussed w/RAD: CT Scan. Radiology Impression: PATIENT: TEDDY VALDEZ PRESENT AGE: 76 PATIENT ACCOUNT NO: [id number] : 40 LOCATION: [facility] ORDERING PHYSICIAN: Nithya Edmondson MD SERVICE DATE: 09/05/17-1649 EXAM TYPE: CAT - CT HEAD WO IV CONTRAST EXAMINATION: CT HEAD WITHOUT CONTRAST CLINICAL INFORMATION: Worsening lightheadedness and confusion. Rule out delayed bleed. Fall yesterday. COMPARISON: Head CT 09/04/2017. TECHNIQUE: Contiguous axial imaging was performed from the skull base to vertex without intravenous administration of contrast. DLP: 634 mGy-cm. FINDINGS: There is no intracranial hemorrhage, large infarction, or mass lesion. There is no extra-axial collection. The ventricles are normal in size and configuration without evidence of hydrocephalus. There is mild diffuse brain parenchymal volume loss. There is linear calcification along the left tentorial leaflet which is nonspecific and unchanged. The paranasal sinuses are clear. The mastoids and middle ear cavities are clear. 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 The largest of these is seen arising from the outer table of the right parietal calvarium measuring up to 5 mm in greatest thickness. IMPRESSION: No acute intracranial abnormality. DICTATED BY: Semaj Serrano MD DATE/TIME DICTATED:1731 [employer] DEVELOPER:JACKELINE DATE/TIME TRANSCRIBED:09/05/171731 CONFIDENTIAL, DO NOT COPY WITHOUT APPROPRIATE AUTHORIZATION. <Electronically signed in Other Vendor System> SIGNED BY: Semaj Serrano MD 09/05/17 1746 Initial ED EKG: NSR Prior EKG: unchanged Departure Departure Time of Disposition: 1910 Disposition: STILL A PATIENT Condition: Stable Clinical Impression Primary Impression: Hypokalemia Secondary Impressions: Minor head injury, Weakness Referrals: Arianna Schwab MD (PCP/Family) Departure Forms: Customer Survey General Discharge Information Admission Note Spoke With: Alfonzo Butt MD Documentation of Exam: Documentation of any treatments & extenuating circumstances including Concerns Regarding Discharge (functional status, medication knowledge or non-compliance, living conditions, etc.) that warrant an admission rather than observation: [IV/ PO POTASSIUM REPLETION, MONITOR I/O, PHYSICAL THERAPY EVALUATION, CRISIS EVALUATION FOR GREIEF/DEPRESSION WHEN MEDICALLY STABLE]
[2017-09-05 17:31] LABS: ABSOLUTE BASOPHIL COUNT 0 /CUMM (0.0-0.2); ABSOLUTE EOSINOPHIL COUNT 0.1 /CUMM (0.0-0.7); ABSOLUTE GRANULOCYTE CT 7.5 /CUMM (1.4-6.5); ABSOLUTE MONOCYTE COUNT 0.5 /CUMM (0.10-0.60); BASOPHIL % 0.3 % (0.0-2.0); GRANULOCYTE % 82.3 % (42.2-75.2); HEMATOCRIT 45.8 % (37-47); MEAN CORPUSCULAR HGB 28.9 PG (27.0-31.0); MEAN CORPUSCULAR HGB CONC 31.8 G/DL (33.0-37.0); MEAN CORPUSCULAR VOLUME 90.8 FL (81.0-99.0); PLATELET COUNT 243 /CUMM (130-400); RBC DISTRIBUTION WIDTH 14.8 % (11.5-14.5); RED BLOOD CELL CT 5.05 /CUMM (4.20-5.40); WHITE BLOOD CELL COUNT 9.2 /CUMM (4.8-10.8)
--- NOTE | 2017-09-05 17:46 | CT SCAN REPORT ---
EXAMINATION: CT HEAD WITHOUT CONTRAST CLINICAL INFORMATION: Worsening lightheadedness and confusion. Rule out delayed bleed. Fall yesterday. COMPARISON: Head CT 09/04/2017. TECHNIQUE: Contiguous axial imaging was performed from the skull base to vertex without intravenous administration of contrast. DLP: 634 mGy-cm. FINDINGS: There is no intracranial hemorrhage, large infarction, or mass lesion. There is no extra-axial collection. The ventricles are normal in size and configuration without evidence of hydrocephalus. There is mild diffuse brain parenchymal volume loss. There is linear calcification along the left tentorial leaflet which is nonspecific and unchanged. The paranasal sinuses are clear. The mastoids and middle ear cavities are clear. 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 The largest of these is seen arising from the outer table of the right parietal calvarium measuring up to 5 mm in greatest thickness. IMPRESSION: No acute intracranial abnormality.
--- NOTE | 2017-09-05 20:19 | History & Physical ---
Delvin Monson 09/05/172016: General Information and HPI MD Statement: I have seen and personally examined TEDDY VALDEZ and documented this H&P. The patient is a 76 year old F who presented with a patient stated chief complaint of lightheadedness weakness and history of fall yesterday in GI suite after colonoscopy and endoscopy []. Source of Information: patient, family, old records Exam Limitations: no limitations History of Present Illness: 76 YO F non diabetic, ex-smoker PMH HTN, HLD, hypothyroidism, GERD, osteoprosis, anxiety and resting tremors in hands brought to ED by her daughter with chief complaint of generalized weakness and patient fell down yesterday in the GI suite after colonoscopy and endoscopy. Her daughter was sitting next to her bed and she helped with answering the questions. According to the patient she was in her usual state of health when the back, she came to the GI suite for colonoscopy and endoscopy yesterday. Patient reported that after the procedure she was doing fine and tried to put on her socks when she fell down. Patient denied any chest pain, nausea, vomiting, loss of consciousness after the fall, confusion, change in vision, dizziness, chills, fever, cough, abdominal pain and dysuria. Patient also reported that she hit her head during the fall and CT scan was done that was normal for any acute intracranial pathology. Patient went home but she didn't feel good as she was feeling weakness so she came back for evaluation in ED. According to the patient she was recently admitted in ED with complain of vomiting and later on she was admitted for stool impaction. Patient also reported that she lost 30 pounds of unintentional weight loss and couple of months and decrease in appetite. Her daughter attributes it to grieving as she reported that her father couple of months back since then her mother lost her appetite. Her daughter reported that due to the age loss and loss of appetite she is getting evaluation and seeing primary care physician who scheduled her for endoscopy and colonoscopy. She reported that for the preparation of the procedure she got laxatives and she had bowel movements 3-4 times per day since then she is feeling weak. She reported that her normal bowel habit is once every third day. Last time patient was admitted in [facility] in April 2017 with abdominal pain and she was diagnosed with small bowel enteritis. Her last echocardiogram was done in 2010 that's showing ejection fraction more than 60% with stage I diastolic failure and mild aortic dilation. Patient reported that she is doing her routine work by herself and she can walk normally without assistance. Right now her son move to her house and he is living with her. Her daughter is also living close by. ED COURSE: Vitals: Temperature 98.2, pulse 100, respiratory rate 18, blood pressure 148/82, oxygen saturation 98% on room air Labs: WBC count 9.2, hemoglobin 14.6, hematocrit 45.8, platelet count 243, sodium 138, potassium 2.7, BUN 4, creatinine 0.6, BUN/creatinine ratio 6.7, glucose 129, calcium 9.6, anion gap 10, bilirubin 9.0, AST 17, ALT 27, troponin less than 0.01, total protein 6.8, albumin 4.0, globulin 2.8, albumin/globulin ratio 1.4 Allergies/Medications Allergies: Coded Allergies: No Known Allergies (05/13/17) Home Med list Alendronate Sodium 70 MG TABLET 1 TAB PO QMON OSTEOPOROSIS (Reported) in the morning, at least 30 minutes before the first food, beverage, or medication of the day Alprazolam 0.25 MG TABLET 1 TAB PO BIDP PRN ANXIETY (Reported) Amlodipine Besylate 5 MG TABLET 1.5 TAB PO DAILY BP (Reported) Docusate Sodium (Colace) 100 MG CAPSULE 1 CAP PO DAILY CONSTIPATION (Reported ) Escitalopram Oxalate 5 MG TABLET 1 TAB PO DAILY MENTAL HEALTH (Reported) Hydrochlorothiazide 25 MG TABLET 1 TAB PO DAILY DIURETIC (Reported) Latanoprost 0.005 % DROPS 1 GTT OU QPM BOTH EYES (Reported) Levothyroxine Sodium 50 MCG TABLET 1 TAB PO DAILY THYROID (Reported) Omeprazole 40 MG CAPSULE.DR 1 CAP PO DAILY GERD (Reported) Ondansetron (Zofran Odt) 4 MG TAB.RAPDIS 1 TAB SL TID nausea Pravastatin Sodium 20 MG TABLET 1 TAB PO DAILY CHOLESTEROL (Reported) Promethazine HCl 25 MG TABLET 1 TAB PO Q6P PRN nausea Tylenol With Codeine (Tylenol With Codeine #3 Tablet) 300 MG-30 MG TABLET 1-2 TAB PO BIDP PRN pain Past History Travel History Traveled to [place] past 21 day No Medical History Neurological: RT ARM RESTING TREMOR EENT: NONE Cardiovascular: hypertension, hyperlipidemia Respiratory: NONE Gastrointestinal: NONE Hepatic: NONE Renal: NONE Musculoskeletal: NONE Psychiatric: NONE Endocrine: hypothyroidism Blood Disorders: NONE Cancer(s): NONE History of MRSA: No History of VRE: No History of CDIFF: No Surgical History Surgical History: none Past Family/Social History Psychosocial History ETOH Use: denies use Illicit Drug Use: denies illicit drug use Review of Systems Review of Systems Constitutional: Reports: weakness. EENTM: Reports: no symptoms. Cardiovascular: Reports: no symptoms. Respiratory: Reports: no symptoms. GI: Reports: see HPI. Genitourinary: Reports: no symptoms. Musculoskeletal: Reports: no symptoms. Skin: Reports: no symptoms. Neurological/Psychological: Reports: tremors. Hematologic/Endocrine: Reports: no symptoms. Exam & Diagnostic Data Last 24 Hrs of Vital Signs/I&O Vital Signs Date Time Temp Pulse Resp B/P B/P Pulse O2 O2 Flow FiO2 Mean Ox Delivery Rate 09/05 1824 98.6 86 18 157/83 97 Room Air Room Air 09/05 1626 98.2 100 18 148/82 98 Room Air Physical Exam General Appearance Alert, Oriented X3, Cooperative, No Acute Distress Skin No Rashes Skin Temp/Moisture Exam: Warm/Dry Sepsis Skin Exam (color): Normal for Ethnicity HEENT Atraumatic, PERRLA, EOMI Neck Supple Cardiovascular Regular Rate, Normal S1, Normal S2 Lungs Clear to Auscultation, Normal Air Movement Abdomen Soft, No Tenderness Neurological Normal Speech, Strength at 5/5 X4 Ext, Normal Tone, Sensation Intact Extremities No Edema Last 24 Hrs of Labs/Demetris: Laboratory Tests 09/05/17 1717: Anion Gap 10, Estimated GFR > 60, BUN/Creatinine Ratio 6.7 L, Glucose 129 H, Calcium 9.6, Total Bilirubin 0.9, AST 17, ALT 27, Alkaline Phosphatase 86, Troponin I < 0.01, Total Protein 6.8, Albumin 4.0, Globulin 2.8, Albumin/ Globulin Ratio 1.4, CBC w Diff NO MAN DIFF REQ, RBC 5.05, MCV 90.8, MCH 28.9, MCHC 31.8 L, RDW 14.8 H, MPV 9.0, Gran % 82.3 H, Lymphocytes % 10.9 L, Monocytes % 5.5, Eosinophils % 1.0, Basophils % 0.3, Absolute Granulocytes 7.5 H, Absolute Lymphocytes 1.0 L, Absolute Monocytes 0.5, Absolute Eosinophils 0.1 , Absolute Basophils 0 Assessment/Plan Assessment: 76 YO F non diabetic, ex-smoker PMH HTN, HLD, hypothyroidism, GERD, osteoprosis, anxiety and resting tremors in hands brought to ED by her daughter with chief complaint of generalized weakness and patient fell down yesterday in the GI suite after colonoscopy and endoscopy. We will admit the patient on general medicine floor for generalized weakness probably due to hypokalemia. HYPOKALEMIA: -Generalized weakness is probably due to Hypokalemia considering her loose motion due to laxatives and she is also on hydrochlorothiazide both can contribute to decrease in potassium. -We will hold the hydrochlorothiazide as it can precipitate hypokalemia. -We will replete her potassium with IV KCl with D5 normal saline at the rate of 75 mL per hour. -Continue iv gentle hydration. -We will recheck her BP. -We will monitor input and output. History of mechanical fall: -As patient fell down yesterday and GI suite probably due to mechanical fall. CT scan head was negative yesterday for any acute intracranial pathology. -PT evaluation in morning. History of grief: -Patient is grieving as her couple of months back. -Psychiatry evaluation in the morning. History of hypertension: -We will continue amlodipine -We will hold hydrochlorothiazide until her potassium came back normal. History of hypothyroidism: -Continue home medication -Follow TSH and free T4. History of hyperlipidemia: -We will continue atorvastatin History of GERD and anxiety: -We will continue her home medications. DVT prophylaxis: Mechanical and Lovenox Code Status: Full codeFull code. As Ranked By This Provider Problem List: 1. Weakness 2. Hypokalemia Core Measures/Misc (03/12) Acute Coronary Syndrome ACS Diagnosis: No Congestive Heart Failure Congestive Heart Failure Diagnosis No Cerebrovascular Accident CVA/TIA Diagnosis: No VTE (View Protocol) VTE Risk Factors Age>40 No Mechanical VTE Prophylaxis d/t N/A MechProphylax Ordered No VTE Pharm Prophylaxis d/t NA PharmProphylax ordered Sepsis (View protocol) Sepsis Present: No Bryant Mcgrath 09/05/172051: Resident Review Statement Resident Statement: examined this patient, discussed with campus recruiting intern, agreed with campus recruiting intern, discussed with family, reviewed EMR data (avail), discussed with nursing , reviewed images Other Findings: Mrs. Zully is a pleasant 76 yo women with PMHx. of HTN, HLD, Arthritis, GERD, hypothyroidism, Osteoporosis, resting tremor Rt. arm presented to ED with a c/o weakness, fatigue. Patient was at our GI suite yesterday for andoscopy/colonoscopy after the procedure she was prepared to leave the suite, she was wearing socks, she tripped and fell on the back of her head with no LOC, she had a ct-head done yesterday which showed no abnormalities, she went home but today she didn't feel right, she was weak so decided to come to ED for more evaluation. Prior to the procedure she ingested the preb which cause large volume loose bowel movement, she was also at our ED 2 weeks ago for stool impaction, prescribed stool softner (Colace, milk of Mg) which cause her bowel movment habits to change from once every 3 days to 4-5 times aday, of loose stool. Assessment: #Mechanical fall #Hypokalemia #Greif #Hx. of HTN, HLD, Hypothyroidism Plan: Will admitt the patient to Gen. med floor She received a total of 80 Kcl oral and IV, will give one dose of potassium CL in D5NS @75ml/hr and will repeat BEP at 12 midnight physical therapy evaluation at am Will continue all of her home medications Psych eval at am for possible depression VS physiological Greif Heart healthy diet DVT ppx SC Lovenox DNR/DNI Alfonzo Butt 09/06/17 0115: Attending MD Review Statement Attending Statement Attending MD Statement: examined this patient, discuss w/resident/PA/NEGATIVE TURNER APPRENTICE, agreed w/resident/PA/NEGATIVE TURNER APPRENTICE, discussed with family, reviewed EMR data (avail), reviewed images, amended to note Attending Assessment/Plan: CC: Lethargy PMH: HTN, HLD, hypothyroidism, resting tremors right hand, osteoarthritis and osteoporosis, glaucoma Patient was brought in ER by her son for not feeling well. Patient underwent EGD and colonoscopy yesterday. After the procedure she was getting ready to to go home then she stood up she felt her legs were very weak, slipped and fell down backwards on her head. Patient denied loss of consciousness after the fall. She denies any dizziness, palpitations or lightheadedness before fall. She was evaluated in ER yesterday with a CT scan and then discharge home. Patient woke up this morning feeling lethargic, tired and not herself so she was brought in ER again for evaluation. Patient currently denies any dizziness, lightheadedness , palpitation, chest pain, chest tightness, abdominal pain, nausea or vomiting or urinary symptoms. Approximately 2-3 weeks back patient was diagnosed to have fecal impaction, was started on Colace and magnesium-based laxative, since then she has been having 3-4 bowel movements every day, semisoft, decreased appetite. She also underwent bowel prep before colonoscopy. She is allergic to IV contrast Vitals: Afebrile, pulse 100, RR 18, blood pressure 148/82, saturating 98% on room air. On exam: A O 3, cooperative, no acute distress, neck supple, JVD normal, no lymphadenopathy, mucosa dry, no focal neurological deficit, no dependent edema, no obvious skin rashes or inflammation CVS: S1-S2, RRR. RS: Clear to auscultate bilaterally. Abdomen: Soft, NT, ND, bowel sounds present. Assessment and plan 76 year old female with above-mentioned past medical history presented in ER for feeling weak and lethargic since morning. Family and patient was worried about the fall that she had yesterday after her EGD and colonoscopy. The fall appears to be accidental, no syncope or presyncope or seizure-like activity. CT scan done at that time was negative. On examination she appears dehydrated otherwise unremarkable, labs show hypokalemia of 2.7 and mild left shift on WBC but rest unremarkable. Patient's lethargy and weakness could be secondary to hypokalemia. Her hypokalemia and dehydration is secondary to her colonic preparation, multiple bowel movements along with increased stool frequency and last 15 days secondary to laxative and decreased by mouth intake. No acute ECG changes. Patient's family is also worried about patient being depressed. She lost her in April, since then patient has not been recovering from her grief. She appears "not herself sometimes', decreased sleep, decreased by mouth intake, family is concerned about depression and wants psych evaluation. Patient states that they were together for 55 years, she misses her and she feels sad, trying to cope up. + Hypokalemia + Dehydration + accidental fall + History of HTN, HLD, hypothyroidism, resting tremors right hand, osteoarthritis and osteoporosis, glaucoma - Admit to general medicine - Continue gentle hydration - Patient received 80 mEq potassium, she will require more, recheck potassium at 12:00 and replete accordingly - OT PT evaluation - Psych evaluation - Discontinue all laxatives - Continue rest of her home medications - DVT prophylaxis
[2017-09-05 21:00] VITALS: BP 134/72
[2017-09-05] MEDS ORDERED: OMEPRAZOLE40 M1 PO (22:00)
--- NOTE | 2017-09-06 01:17 | Admission Certification ---
Admission Certification Certification Statement - As attending physician, I certify that at the time of - admission, based on clinical presentation, severity of - symptoms, need for further diagnostic testing and - therapeutic interventions, and risk of adverse outcomes - without in-hospital treatment, in my clinical assessment, - this patient requires an acute hospital stay for a minimum - of two nights or longer. I have also considered psychsocial - factors such as support system, advanced age, financial - issues, cognitive issues, and failed out-patient treatments, - past re-admission history, safety of patient, and lack of - compliance as applicable. Specific rationale supporting this admission is: hypokalemia, dehydration
[2017-09-06 05:50] VITALS: BP 116/68
--- NOTE | 2017-09-06 07:12 | PN- Housestaff ---
See Addendum Soledad Hall MD 09/06/17 0711: Subjective Follow-up For: Generalized weakness, hypokalemia Complaints: weakness Subjective: Patient was seen and examined at bedside. Patient lying in her bed comfortably. No overnight events. She says she slept well overnight. She complains of generalized weakness and requested to be seen by psychiatry given her recent loss of her . Patient denies suicidal ideation, anxiety, depression, chest pain, shortness of breath, cough, nausea, vomiting. Patient hasn't had any bowel movement for the past 2 days. Review of Systems Constitutional: Reports: weakness. Cardiovascular: Reports: no symptoms. Respiratory: Reports: no symptoms. Gastrointestinal: Reports: no symptoms. Genitourinary: Reports: no symptoms. Musculoskeletal: Reports: no symptoms. Objective Last 24 Hrs of Vital Signs/I&O Vital Signs Date Time Temp Pulse Resp B/P B/P Pulse O2 O2 Flow FiO2 Mean Ox Delivery Rate 09/06 1058 85 108/72 09/06 0857 82 43857/7 09/06 0550 98.2 82 20 116/68 99 Room Air 09/05 2100 98.1 88 18 134/72 99 Room Air 09/05 2055 98.2 85 18 152/82 97 Room Air Room Air 09/05 1824 98.6 86 18 157/83 97 Room Air Room Air 09/05 1626 98.2 100 18 148/82 98 Room Air Intake & Output 09/06 1600 09/06 0800 09/06 0000 Intake Total 960 270 Output Total 250 Balance 960 20 Intake, IV 600 150 Intake, Oral 360 120 Number 0 Bowel Movements Output, Urine 250 Patient 133 lb Weight Weight Reported by Patient Measurement Method Physical Exam General Appearance: Alert, Oriented X3, Cooperative, No Acute Distress Skin: No Rashes, No Breakdown HEENT: Atraumatic, PERRLA Neck: Supple, No JVD, No thryomegaly Cardiovascular: Regular Rate, Normal S1, Normal S2, No Murmurs Lungs: Clear to Auscultation Abdomen: Normal Bowel Sounds, Soft, No Tenderness Neurological: Strength at 5/5 X4 Ext, Normal Tone, Sensation Intact Extremities: No Edema Current Medications: Current Medications Sig/Filiberto Start time Last Medication Dose Route Stop Time Status Admin Acetaminophen 650 MG Q6P PRN 03/13 2030 AC PO Alendronate Sodium 70 MG QMON 09/11 0700 AC PO Amlodipine Besylate 7.5 MG DAILY 09/06 1000 AC 09/06 PO 0857 Dextrose/Sodium 1,000 ML Q13H 09/05 2130 DC 09/05 Chloride IV 2218 Enoxaparin Sodium 40 MG DAILY 09/06 1000 AC 09/06 SC 0857 Hydrochlorothiazide 25 MG DAILY 09/06 1000 DC 09/06 PO 0857 Levothyroxine Sodium 0.05 MG DAILY AC 09/06 0700 AC 09/06 PO 0528 Lisinopril 5 MG DAILY 09/06 1000 AC PO Multivitamins 1 TAB DAILY 09/06 1000 AC 09/06 PO 0857 Omeprazole 40 MG DAILY AC 09/06 0700 AC 09/06 PO 0528 Oxycodone/ 1 TAB Q12P PRN 09/05 2030 AC Acetaminophen PO Potassium Chloride 40 MEQ ONCE ONE 09/06 0245 DC 09/06 PO 09/06 0246 0528 Potassium Chloride 10 MEQ 75 MLS/HR 09/05 2100 CAN IV 09/05 2101 Potassium Chloride 20 MEQ Q13H 09/05 2100 DC Dextrose/Sodium 1,000 ML IV 09/06 0959 Chloride Potassium Chloride 0 .STK-MED ONE 09/05 1836 DC PO Potassium Chloride 10 MEQ ONCE ONE 09/05 1830 DC 09/05 IV 09/05 1831 1923 Potassium Chloride 10 MEQ ONCE ONE 09/05 1830 DC 09/05 IV 09/05 1831 2028 Potassium Chloride 60 MEQ ONCE ONE 09/05 1830 DC 09/05 PO 09/05 1831 1839 Pravastatin Sodium 20 MG 1700 09/06 1700 AC PO Last 24 Hrs of Lab/Demetris Results Last 24 Hrs of Labs/Mics: Laboratory Tests 09/06/17 0714: Anion Gap 5, Estimated GFR > 60, BUN/Creatinine Ratio 6.0 L, CBC w Diff NO MAN DIFF REQ, RBC 4.25, MCV 88.9, MCH 30.1, MCHC 33.9, RDW 14.9 H, MPV 9.4, Gran % 80.2 H, Lymphocytes % 11.3 L, Monocytes % 5.8, Eosinophils % 2.3, Basophils % 0.4, Absolute Granulocytes 6.8 H, Absolute Lymphocytes 1.0 L, Absolute Monocytes 0.5, Absolute Eosinophils 0.2, Absolute Basophils 0 09/05/17 2359: Anion Gap 6, Estimated GFR > 60, BUN/Creatinine Ratio 8.0 09/05/17 1717: Anion Gap 10, Estimated GFR > 60, BUN/Creatinine Ratio 6.7 L, Glucose 129 H, Calcium 9.6, Total Bilirubin 0.9, AST 17, ALT 27, Alkaline Phosphatase 86, Troponin I < 0.01, Total Protein 6.8, Albumin 4.0, Globulin 2.8, Albumin/ Globulin Ratio 1.4, CBC w Diff NO MAN DIFF REQ, RBC 5.05, MCV 90.8, MCH 28.9, MCHC 31.8 L, RDW 14.8 H, MPV 9.0, Gran % 82.3 H, Lymphocytes % 10.9 L, Monocytes % 5.5, Eosinophils % 1.0, Basophils % 0.3, Absolute Granulocytes 7.5 H, Absolute Lymphocytes 1.0 L, Absolute Monocytes 0.5, Absolute Eosinophils 0.1 , Absolute Basophils 0 Assessment/Plan Assessment: 76 YO F non diabetic, ex-smoker PMH HTN, HLD, hypothyroidism, GERD, osteoprosis, anxiety and resting tremors in hands brought to ED by her daughter with chief complaint of generalized weakness and patient fell down yesterday in the GI suite after colonoscopy and endoscopy. Generalized weakness/HYPOKALEMIA: -Generalized weakness can be multifactorial given her recent loss of her patient has been having decreased appetite, patient also had recent colonoscopy and endoscopy with the bowel prep which made her feel very weak following nausea and diarrhea. Patient is recent fall 2 days ago in the GI suite secondary due to decreased by mouth intake and dehydration. Her CAT scan upon admission was negative. No evidence of any fracture. All these consecutive events had led to decrease potassium upon admission. We will replace the same. Will follow up with bep. Patient is alert and oriented 3 and able to sit in her chair with support. We will get physical therapy on board to assess at baseline. -We will hold the hydrochlorothiazide as it can precipitate hypokalemia. -Patient is able to take her breakfast and we will discontinue IV fluids. -We will recheck her BEP. -We will monitor input and output. 2. History of grief: -Patient is grieving as her couple of months back. -Psychiatry evaluation in the morning. 3. History of hypertension: -We will continue amlodipine -We will hold hydrochlorothiazide until her potassium came back normal. We will started on lisinopril 5 mg and titrated based on her blood pressure. 4. History of hypothyroidism: -Continue home medication -Follow TSH and free T4. 5. History of hyperlipidemia -We will continue atorvastatin 6. History of GERD and anxiety: -We will continue her home medications. DVT prophylaxis: Mechanical and Lovenox Code Status: Full codeFull code. Problem List: 1. Hypokalemia 2. Weakness Pain Ratin Pain Location: NONE Pain Goal: Remain pain free Pain Plan: TYLENOL Tomorrow's Labs & Rationales: CBC,BEP Chi Ramos 09/06/17 1236: Attending MD Review Statement Attending Statement Attending MD Statement: examined this patient, discuss w/resident/PA/CIGARETTE VENDOR, agreed w/resident/PA/CIGARETTE VENDOR, discussed with family, reviewed EMR data (avail), discussed with nursing, discussed with case mgmt, reviewed images, amended to note Attending Assessment/Plan: Assessment and plan 76 year old female presented in ER for feeling weak and lethargic since morning. Family and patient was worried about the fall that she had yesterday after her EGD and colonoscopy. No new complaints today. 1 Hypokalemia 2 Dehydration 3 accidental fall 4 History of HTN, HLD, hypothyroidism, resting tremors right hand, osteoarthritis and osteoporosis, glaucoma - Admit to general medicine - Continue gentle hydration - Hypokalemia resolved. Discontinue thiazides/diuretics. Start lisinopril. Monitor bp. - OT PT evaluation - Psych evaluation - Continue rest of her home medications - DVT prophylaxis.
[2017-09-06 08:21] LABS: ABSOLUTE BASOPHIL COUNT 0 /CUMM (0.0-0.2); ABSOLUTE EOSINOPHIL COUNT 0.2 /CUMM (0.0-0.7); ABSOLUTE GRANULOCYTE CT 6.8 /CUMM (1.4-6.5); ABSOLUTE MONOCYTE COUNT 0.5 /CUMM (0.10-0.60); BASOPHIL % 0.4 % (0.0-2.0); EOSINOPHIL % 2.3 % (0-5); GRANULOCYTE % 80.2 % (42.2-75.2); MEAN CORPUSCULAR HGB 30.1 PG (27.0-31.0); MEAN CORPUSCULAR HGB CONC 33.9 G/DL (33.0-37.0); MEAN CORPUSCULAR VOLUME 88.9 FL (81.0-99.0); MEAN PLATELET VOLUME 9.4 FL (7.4-10.4); PLATELET COUNT 214 /CUMM (130-400); RBC DISTRIBUTION WIDTH 14.9 % (11.5-14.5); RED BLOOD CELL CT 4.25 /CUMM (4.20-5.40); WHITE BLOOD CELL COUNT 8.5 /CUMM (4.8-10.8)
[2017-09-06 09:01] LABS: HEMATOCRIT 37.8 % (37-47)
--- NOTE | 2017-09-06 10:28 | Cons- Psychiatry ---
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 Pt is a 76 yo recently F w/ PMH HTN, HLD, hypothyroidism, GERD, osteoprosis, anxiety and resting tremors in hands who was BIB family 2/2 weakness and fall. Pt hit head no acute findings on CT. Found to have low potassium and admitted. Consult called for ?depression. Pt states she has been grieving the loss of her of 50 years but is doing much better. She is crying less. She denies depressive sx. Eating and sleeping well, energy is good, mood is euthymic with normal grief. She has good support from family. No memory issues, not getting lose or leaving stove on. Denies hx isabella, trauma, abuse, substance. Denies SI HI AH VH. On low dose lexapro. FH: n/a SH: was a hairdresser. worled for [employer]. 55 years, he recently passed. Current Medications Sig/Filiberto Start time Last Medication Dose Route Stop Time Status Admin Acetaminophen 650 MG Q6P PRN 09/05 2030 AC PO Alendronate Sodium 70 MG QMON 09/11 0700 AC PO Amlodipine Besylate 7.5 MG DAILY 09/06 1000 AC 09/06 PO 0857 Cyanocobalamin 1,000 MCG DAILY 09/06 1356 AC 09/06 PO 1557 Dextrose/Sodium 1,000 ML Q13H 09/05 2130 DC 09/05 Chloride IV 2218 Enoxaparin Sodium 40 MG DAILY 09/06 1000 AC 09/06 SC 0857 Hydrochlorothiazide 25 MG DAILY 09/06 1000 DC 09/06 PO 0857 Levothyroxine Sodium 0.05 MG DAILY AC 09/06 0700 AC 09/06 PO 0528 Lisinopril 5 MG DAILY 09/06 1000 AC PO Multivitamins 1 TAB DAILY 09/06 1000 AC 09/06 PO 0857 Omeprazole 40 MG DAILY AC 09/06 0700 AC 09/06 PO 0528 Oxycodone/ 1 TAB Q12P PRN 09/05 2030 AC Acetaminophen PO Potassium Chloride 40 MEQ ONCE ONE 09/06 0245 DC 09/06 PO 09/06 0246 0528 Potassium Chloride 10 MEQ 75 MLS/HR 09/05 2100 CAN IV 09/05 2101 Potassium Chloride 20 MEQ Q13H 09/05 2100 DC Dextrose/Sodium 1,000 ML IV 09/06 0959 Chloride Potassium Chloride 0 .STK-MED ONE 09/05 1836 DC PO Potassium Chloride 10 MEQ ONCE ONE 09/05 1830 DC 09/05 IV 09/05 1831 1923 Potassium Chloride 10 MEQ ONCE ONE 09/05 1830 DC 09/05 IV 09/05 1831 2028 Potassium Chloride 60 MEQ ONCE ONE 09/05 1830 DC 09/05 PO 09/05 1831 1839 Pravastatin Sodium 20 MG 1700 09/06 1700 AC PO MSE: Pt is an elderly woman in bed in [facility] in [facility]. Pleasant, resting tremor. Mood is good and affect is is content TP linear TC no delusions or hallucinations I/J good A/ 76 yo F who recently lost her . She is going through normal bereavement and has been improving. -If she complains of worsening anxiety could raise lexapro to 10 mg but no indication for this on my exam -Counseled her that her grief could still turn to depression and gave psychoeducation regarding sx and treatment. Thank you for this consult. Please call with any questions. Colleen Garcia MD #[id number]
[2017-09-06 14:07] VITALS: BP 142/83
[2017-09-06 22:49] VITALS: BP 134/76
[2017-09-07 06:31] VITALS: BP 138/84
--- NOTE | 2017-09-07 07:52 | PN- Housestaff ---
Rafael JOSEPH,Soledad 09/07/17 0752: Subjective Follow-up For: fall, depression Complaints: no complaints Subjective: Patient seen and examined at bedside. She was lying in her bed comfortably. No overnight events. She offers no complaints. She denies chest pain, chest pressure, nausea, vomiting. She said she worked with physical therapy yesterday. She is eager to go home today. Review of Systems Constitutional: Reports: no symptoms. Cardiovascular: Reports: no symptoms. Respiratory: Reports: no symptoms. Gastrointestinal: Reports: no symptoms. Genitourinary: Reports: no symptoms. Objective Last 24 Hrs of Vital Signs/I&O Vital Signs Date Time Temp Pulse Resp B/P B/P Pulse O2 O2 Flow FiO2 Mean Ox Delivery Rate 09/07 0908 82 132/80 09/07 0907 82 132/80 09/07 0631 98.3 84 20 138/84 97 09/06 2249 98.2 92 20 134/76 95 Room Air 09/06 1407 97.6 91 20 142/83 99 Room Air 09/06 1058 85 108/72 Intake & Output 09/07 1600 09/07 0800 09/07 0000 Intake Total 110 Output Total 350 Balance -240 Intake, IV 10 Intake, Oral 100 Output, Urine 350 Physical Exam General Appearance: Alert, Oriented X3, Cooperative, No Acute Distress Skin: No Rashes HEENT: Atraumatic, PERRLA Neck: Supple, No JVD, No thryomegaly Cardiovascular: Regular Rate, Normal S1, Normal S2 Lungs: Clear to Auscultation, Normal Air Movement Abdomen: Normal Bowel Sounds, Soft, No Tenderness Neurological: Strength at 5/5 X4 Ext, Normal Tone, Sensation Intact Extremities: right hand tremors Current Medications: Current Medications Sig/Filiberto Start time Last Medication Dose Route Stop Time Status Admin Acetaminophen 650 MG Q6P PRN 09/05 2030 AC PO Alendronate Sodium 70 MG QMON 09/11 0700 AC PO Amlodipine Besylate 7.5 MG DAILY 09/06 1000 AC 09/07 PO 0907 Calcium Carbonate 500 MG ONCE ONE 09/06 1730 DC 09/06 PO 09/06 1731 1726 Cyanocobalamin 1,000 MCG DAILY 09/06 1356 AC 09/07 PO 0908 Enoxaparin Sodium 40 MG DAILY 09/06 1000 AC 09/07 SC 0908 Hydrochlorothiazide 25 MG DAILY 09/06 1000 DC 09/06 PO 0857 Levothyroxine Sodium 0.05 MG DAILY AC 09/06 0700 AC 09/07 PO 0632 Lisinopril 5 MG DAILY 09/06 1000 AC 09/07 PO 0908 Multivitamins 1 TAB DAILY 09/06 1000 AC 09/07 PO 0908 Omeprazole 40 MG DAILY AC 09/06 0700 AC 09/07 PO 0632 Oxycodone/ 1 TAB Q12P PRN 09/05 2030 AC Acetaminophen PO Pravastatin Sodium 20 MG 1700 09/06 1700 AC 09/06 PO 1654 Last 24 Hrs of Lab/Demetris Results Last 24 Hrs of Labs/Mics: Laboratory Tests 09/07/17 0724: Anion Gap 10, Estimated GFR > 60, BUN/Creatinine Ratio 5.0 L Assessment/Plan Assessment: 76 YO F non diabetic, ex-smoker PMH HTN, HLD, hypothyroidism, GERD, osteoprosis, anxiety and resting tremors in hands brought to ED by her daughter with chief complaint of generalized weakness and patient fell down yesterday in the GI suite after colonoscopy and endoscopy. Generalized weakness/HYPOKALEMIA: -Generalized weakness can be multifactorial given her recent loss of her [grieving] also patient has been having decreased appetite, patient had recent colonoscopy and endoscopy with the bowel prep which made her feel very weak following nausea and diarrhea. Patient's recent fall 2 days ago in the GI suite secondary due to decreased by mouth intake and dehydration. Her head CAT scan upon admission was negative. No evidence of any fracture. All these consecutive events had led to decrease potassium upon admission. We will replace the same. Will follow up with bep. - Patient is alert and oriented 3 and able to sit in her chair with support. Patient worked with physical therapy who suggested home self care. -We will hold the hydrochlorothiazide as it can precipitate hypokalemia. -We will recheck her BEP. -We will monitor input and output. 2. History of grief: -Patient is grieving as her couple of months back. Patient was seen by psychiatry who suggested this in normal grief. 3. History of hypertension: -We will continue amlodipine -Patient hydrochlorothiazide was held in view of hypokalemia and was started on lisinopril 5 mg. Patient agrees with the plan. 4. History of hypothyroidism: -Continue home medication patient TSH is 1.6 and free T4 is 1.98. 5. History of hyperlipidemia -We will continue atorvastatin 6. History of GERD and anxiety: -We will continue her home medications. 7. Malnutrition Patient has a low prealbumin of 8.9. Nutrition consult placed. DVT prophylaxis: Mechanical and Lovenox Code Status: Full code Problem List: 1. Weakness 2. Hypokalemia Pain Ratin Pain Location: none Pain Goal: Remain pain free Pain Plan: tylenol Tomorrow's Labs & Rationales: none Itz Eagle MD 09/07/17 2108: Attending MD Review Statement Attending Statement Attending MD Statement: examined this patient, discuss w/resident/PA/PRESS WASHER, agreed w/resident/PA/PRESS WASHER, reviewed EMR data (avail), discussed with nursing, discussed with case mgmt, amended to note Attending Assessment/Plan: The patient was seen and discussed with house staff, nursing, and case management. OK to discharge to home today as planned with home services.
--- NOTE | 2017-09-07 08:16 | Discharge Summary ---
Visit Information Visit Dates Admission Date: 09/05/17 Discharge Date: 09/07/17 Hospital Course Course Attending Physician: Chi Ramos MD Primary Care Physician: Zaheer JOSEPH,[facility] Course: 76 -year-old female with past medical history of HTN, HLD, hypothyroidism, GERD, osteoprosis, anxiety and resting tremors in hands brought to ED by her daughter with chief complaint of generalized weakness and patient fell down in the GI suite after colonoscopy and endoscopy 2 days prior to the admission. Patient underwent colonoscopy and endoscopy at [facility] and following the procedure patient had a mechanical fall which she claims secondary due to multiple bowel movements following enema. Patient denied any chest pain, nausea, vomiting, loss of consciousness after the fall, confusion, change in vision, dizziness, chills, fever, cough, abdominal pain and dysuria. Patient also reported that she hit her head during the fall and CT scan was done that was normal for any acute intracranial pathology. Patient went home but she didn't feel good as she was feeling weakness so she came back for evaluation in ED. According to the patient she was recently admitted in ED with complain of vomiting and later on she was seen for stool impaction. Patient also reported that she lost 30 pounds of unintentional weight loss and couple of months and decrease in appetite. Her daughter attributed it to grieving as she reported that her father couple of months back since then, her mother lost her appetite. Her daughter reported that due to the age and loss of appetite she is being evaluated by her primary care physician who referred to [facility] for colonoscopy and endoscopy. She reported that for the preparation of the procedure she got laxatives and she had bowel movements 3-4 times per day since then she is charted feeling weak. She reported that her normal bowel habit is once every third day. Last time patient was admitted in [facility] in April 2017 with abdominal pain and she was diagnosed with small bowel enteritis. Her last echocardiogram was done in 2010 that's showing ejection fraction more than 60% with stage I diastolic failure and mild aortic dilation. Patient reported that she is doing her routine work by herself and she can walk normally without assistance. She lives with her son. Hospital course Patient was admitted in general medical floor for generalized weakness. Her CAT scan of the head and x-rays ruled out any fracture. Patient's hydrochlorthiazide was stopped in view of hypokalemia and fall. She was started on lisinopril 5 mg. Patient's pain medication and benzodiazepine was stopped in view of weakness and fall. Physical therapy worked with the patient who suggested home self care and continued use of walker at home. Patient was discharged home with follow-up with her primary care physician and skylights assembler [her colonoscopy and endoscopy results are pending]. Head CT IMPRESSION: No acute intracranial abnormality. Allergies: Coded Allergies: No Known Allergies (05/13/17) Disposition Summary Disposition Principal Diagnosis: Generalized weakness Additional Diagnosis: Hypokalemia-resolved Discharge Disposition: home or self care Discharge Instructions General Discharge Information Code Status: Do Not Resucitate/Intubat Patient's Diet: Regular diet Patient's Activity: As tolerated Follow-Up Instructions/Appts: Please follow-up with your primary care provider and skylights assembler as outpatient within 1-2 weeks of discharge. Medications at Discharge Discharge Medications: Stop taking the following medications: Hydrochlorothiazide (Hydrochlorothiazide) 25 MG TABLET ORAL DAILY Qty = 90 Docusate Sodium (Colace) 100 MG CAPSULE ORAL DAILY Alprazolam (Alprazolam) 0.25 MG TABLET ORAL 2 x Daily as needed as needed for ANXIETY Qty = 10 Ondansetron (Zofran Odt) 4 MG TAB.RAPDIS SUBLINGUAL THREE TIMES DAILY Qty = 20 Promethazine HCl (Promethazine HCl) 25 MG TABLET ORAL EVERY SIX HOURS NEEDED as needed for nausea Qty = 30 Tylenol With Codeine (Tylenol With Codeine #3 Tablet) 300 MG-30 MG TABLET ORAL 2 x Daily as needed as needed for pain Qty = 10 Continue taking these medications: Levothyroxine Sodium (Levothyroxine Sodium) 50 MCG TABLET 1 Tablet ORAL DAILY Qty = 90 Comments: Last Taken: 09/07/17 Time: 6:30 AM Amlodipine Besylate (Amlodipine Besylate) 5 MG TABLET 1.5 Tablet ORAL DAILY Qty = 135 Comments: Last Taken: 09/07/17 Time: 9:00 AM Alendronate Sodium (Alendronate Sodium) 70 MG TABLET 1 Tablet ORAL EVERY MONDAY Qty = 12 Instructions: in the morning, at least 30 minutes before the first food, beverage, or medication of the day Comments: NOT GIVEN IN HOSPITAL Pravastatin Sodium (Pravastatin Sodium) 20 MG TABLET 1 Tablet ORAL DAILY Qty = 90 Comments: Last Taken: 09/06/17 Time: 5:00 PM Latanoprost (Latanoprost) 0.005 % DROPS 1 Drop Both Eyes Every night Qty = 10 Comments: NOT GIVEN IN HOSPITAL Escitalopram Oxalate (Escitalopram Oxalate) 5 MG TABLET 1 Tablet ORAL DAILY Qty = 30 Comments: NOT GIVEN IN HOSPITAL Omeprazole (Omeprazole) 40 MG CAPSULE.DR 1 Capsule ORAL DAILY Qty = 30 Comments: Last Taken: 09/07/17 Time: 6:30 AM Start taking the following new medications: Lisinopril (Lisinopril) 5 MG TABLET 5 Milligram ORAL DAILY Qty = 30 No Refills Instructions: . Comments: Last Taken: 09/07/17 Time: 9:00 AM Simethicone (Mytab Gas) 80 MG TAB.CHEW 1 Tablet ORAL EVERY 4 HOURS NEEDED as needed for gas Qty = 60 No Refills Instructions: . Comments: Last Taken: 09/07/17 Time: 12:00 PM Copies To: Zaheer JOSEPH,Arianna Attending MD Review Statement Documenting Attending: Itz Eagle MD Other Findings: The patient was seen on the day of discharge and agree with the plan of care.
--- NOTE | 2017-09-07 09:48 | Patient Discharge Instructions ---
Discharge Instructions General Discharge Information You were seen/treated for: Generalized weakness Watch for these problems: In case of chest pain, chest pressure, weakness, loss of consciousness, fall please go to the nearest emergency room Special Instructions: Please follow-up with your primary care provider within 1-2 weeks of discharge. Please follow-up with your GI doctor within 1-2 weeks of discharge. Diet Continue normal diet: Yes Activity Full Activity/No Limits: No Activity Self Limited: Yes Acute Coronary Syndrome Inclusion Criteria At DC or during hospital stay patient has or had the following: ACS DIAGNOSIS No Discharge Core Measures Meds if any: Prescribed or Continued at Discharge Meds if any: NOT Prescribed or Continued at Discharge Congestive Heart Failure Inclusion Criteria At DC or during hospital stay patient has or had the following: CHF DIAGNOSIS No Discharge Core Measures Meds if any: Prescribed or Continued at Discharge Meds if any: NOT Prescribed or Continued at Discharge Cerebrovascular accident Inclusion Criteria At DC or during hospital stay patient has or had the following: CVA/TIA Diagnosis No Discharge Core Measures Meds if any: Prescribed or Continued at Discharge Meds if any: NOT Prescribed or Continued at Discharge Venous thromboembolism Inclusion Criteria VTE Diagnosis No VTE Type NONE VTE Confirmed by (Test) NONE Discharge Core Measures - Per Current guidelines, there needs to be overlap - treatment for the first 5 days of Warfarin therapy. - If discharged on Warfarin prior to 5 days of - overlap therapy, the patient will need to be - assessed for post discharge needs including - *Post discharge parental anticoagulation - *Warfarin and/or parental anticoagulation education - *Follow up date to check INR post discharge At least 5 days overlap therapy as Inpatient No Meds if any: Prescribed or Continued at Discharge Note: Overlap Therapy is Warfarin and Anticoagulant Meds if any: NOT Prescribed or Continued at Discharge
[2017-09-07] MEDS ORDERED: LISINOPRIL5 M1 PO ×2 (09:55→13:28)
[2017-09-07] MEDS ORDERED: MYTAB GAS80 M1 PO ×2 (10:32→13:28)
[2017-09-07 13:50] VITALS: BP 123/71
== END 2017-09-07 14:53 | DRG 641 ==
LOC: ERH 16:22 → ERHI 19:08 → 2NB 19:08 → ENTRNSPT 20:29 → EDTRNSPTSTS 20:42 → EDTRNSPT 20:42 → 2NB 20:57 → CMPTRNSPT 21:07 → 2NB 09-06 07:53 → ENPENDDIS 09-07 13:51 → ENTRNSPT 09-07 14:34 → 2NB 09-07 14:53 → CMPTRNSPT 09-07 15:01
PROVIDERS: Emergency Medicine; Student in an Organized Health Care Education/Training Program
DX: E87.6 Hypokalemia (principal); E86.0 Dehydration; R63.4 Abnormal weight loss; Z68.22 Body mass index [BMI] 22.0-22.9, adult; I10 Essential (primary) hypertension; E78.5 Hyperlipidemia, unspecified; Z87.891 Personal history of nicotine dependence; K21.9 Gastro-esophageal reflux disease without esophagitis; E03.9 Hypothyroidism, unspecified; M81.0 Age-related osteoporosis without current pathological fracture; F41.9 Anxiety disorder, unspecified; G25.2 Other specified forms of tremor; W18.30XA Fall on same level, unspecified, initial encounter; Y92.238 Other place in hospital as the place of occurrence of the external cause; F43.21 Adjustment disorder with depressed mood; Z66 Do not resuscitate; M19.90 Unspecified osteoarthritis, unspecified site
CPT/HCPCS: 2NBSP; 36415; 36592; 82436; 93005; 93010; 97116-GO; 97161-GP; 97530-GO; J1650; J7042; S5012